=== PATIENT | male | born 1980 | race Caucasian/White ===

== ENCOUNTER 2017-07-22 08:00 | Outpatient (RCR) | payer BC ==
[2017-04-29 08:52] LABS: PLATELET COUNT, AUTOMATED 47 K/uL (150-450)
[2017-04-29 08:56] VITALS: BP 128/59
--- NOTE | 2017-04-29 09:10 | Oncology Note ---
Patient has called today with lab results. Platelet level is currently at 47, 000. Patient denies any episodes of bleeding or abnormal bruising. In review of literature on Sprycel, the indication is to hold treatment for platelet level less than 50,000 or ANC less than 1000. Patient was instructed to hold Sprycel 1 week. He has an appointment next week for CBC and we will reevaluate at that time. Patient will continue on allopurinol. He verbalized understanding. Patient also verbalized understanding if he were to have episodes of bleeding to seek medical care. JUDI BLANCO-BC, ONC Apr 29, 2017 09:10
[2017-05-06 08:28] VITALS: BP 133/77
[2017-05-06 08:45] LABS: PLATELET COUNT, AUTOMATED 79 K/uL (150-450)
--- NOTE | 2017-05-06 09:17 | Oncology Note ---
Patient is called with his lab results today. Platelet level is increased to 79, 000 and absolute neutrophil count is 1700. Patient denied any episodes of abnormal bleeding or bruising and overall is feeling very well. He will restart Sprycel tomorrow morning and repeat labs in 1 week. If platelet level goes below 50,000 we will hold treatment again. Patient follows with Dr. Morales in May. At that time we may need to do a dose reduction, it will just depend on the trend that he has over the next several weeks. Patient verbalizes understanding and agrees with plan of care JUDI BLANCO FRANCHISE MANAGER-BC, ONC May 06, 2017 09:17
[2017-05-13 08:20] VITALS: BP 134/78
[2017-05-13 08:32] LABS: PLATELET COUNT, AUTOMATED 106 K/uL (150-450)
[2017-05-20 08:05] VITALS: BP 125/73
[2017-05-20 08:21] LABS: PLATELET COUNT, AUTOMATED 76 K/uL (150-450)
[2017-05-27 08:11] VITALS: BP 137/74
[2017-05-27 08:26] LABS: PLATELET COUNT, AUTOMATED 68 K/uL (150-450)
[2017-06-03 08:32] LABS: PLATELET COUNT, AUTOMATED 69 K/uL (150-450)
[2017-06-03 10:24] VITALS: BP 127/64
[2017-06-06 08:07] VITALS: BP 126/77
--- NOTE | 2017-06-06 09:59 | [facility] ONCOLOGY NOTE ---
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 HISTORY OF PRESENT ILLNESS Dm returns. His original white count was 193,000 with a 25 cm spleen. His labs have normalized, and his spleen is no longer palpable. He developed some mild pancytopenia, but this is now improved back to normal. He started dasatinib on February 18, 2017. At the three-month period, he already has profound improvement in his BCR/ABL testing with a weak positive. Of note, his original BCR/ABL testing showed a major breakpoint of p210, but it now shows a barely detectable p190 breakpoint. No bone marrow blasts in the bone marrow biopsy to suggest blast phase or accelerated phase. Overall Dm feels well. His headaches, fatigue, low-grade fever have all improved. His only complaint today is some mild indigestion. He started a probiotic. He thinks this is helping. Answered all of his questions today. No new issues. PAST MEDICAL HISTORY CML. MEDICATIONS Sprycel. REVIEW OF SYSTEMS CONSTITUTIONAL: No fevers or chills. HEENT: No headache or vision changes. Cold sores resolved. Off acyclovir now. CARDIOVASCULAR: No chest pain, dyspnea on exertion or edema. RESPIRATORY: No shortness of breath, wheeze, cough. GASTROINTESTINAL: Positive indigestion with some occasional heartburn-like symptoms. Started a probiotic. Could consider a PPI for two months if this does not improve. GENITOURINARY: No dysuria or hematuria. MUSCULOSKELETAL: No aches or pains. EXTREMITIES: No clubbing, cyanosis or edema. HEMATOLOGICAL/LYMPHATIC: No concerning lumps or bumps. NEUROLOGICAL: No deficits. PSYCHIATRIC: Normal, no anxiety or depression. Remainder of the 14-point review of systems is otherwise negative. PHYSICAL EXAMINATION VITAL SIGNS: Blood pressure 126/77, pulse 65, respiratory rate 16, temperature 97.8 Fahrenheit, oxygen saturation 98% on room air. Weight 95.9 kg. Pain 0/10 , fatigue 0/10. GENERAL: In stable condition, resting comfortably in the chair. HEENT: Normocephalic, atraumatic. CARDIOVASCULAR: Regular rate and rhythm. LUNGS: Clear to auscultation bilaterally. No wheezes, crackles or rales. No dullness at the base. ABDOMEN: Soft. I no longer feel the spleen. Nontender, nondistended. PSYCHIATRIC: Normal mood and affect. Much improved. The remainder of physical exam unremarkable. IMPRESSION AND PLAN Mr. Rodriguez is a pleasant 36-year-old gentleman with the followin. Chronic phase chronic myelogenous leukemia, newly diagnosed with a p210 breakpoint. He is responding very well to Sprycel. He has already obtained complete hematologic response. He still has a detectable BCR/ABL test with a positive p190. Will confirm that they also checked for p210. Will see him every three months with labs every month for now. I answered all of their many questions today. Billing: Return visit level 4. Total time 30 minutes, counseling time 20. MTDD
[2017-07-04 08:24] VITALS: BP 134/73
[2017-07-04 08:39] LABS: PLATELET COUNT, AUTOMATED 39 K/uL (150-450)
[2017-07-08 08:45] VITALS: BP 135/83
[2017-07-08 09:16] LABS: PLATELET COUNT, AUTOMATED 48 K/uL (150-450)
[2017-07-12 08:15] VITALS: BP 142/55
[2017-07-12 08:58] LABS: PLATELET COUNT, AUTOMATED 42 K/uL (150-450)
[2017-07-15 08:45] LABS: PLATELET COUNT, AUTOMATED 44 K/uL (150-450)
[2017-07-15 08:46] VITALS: BP 145/93
[2017-07-18 09:23] LABS: PLATELET COUNT, AUTOMATED 52 K/uL (150-450)
[2017-07-18 10:46] VITALS: BP 130/78
[~2017-07-22] VITALS: Ht 188 cm; Wt 95.9 kg
[~2017-07-22 08:00] MED LIST: ACET-1966 PO; ACYC-50 PO; ALLO-119 PO; IBUP200C71 PO; LACT1CAP6 PO; ONDA4TAB9 PO; SULF-283 PO; [UNRECOGNIZED DRUG - CODE] PO
[2017-07-22 08:05] VITALS: BP 135/99
[2017-07-22 08:26] LABS: PLATELET COUNT, AUTOMATED 63 K/uL (150-450)
== END 2017-07-27 ==
LOC: SPU 08:00
PROVIDERS: ATTEND Internal Medicine Medical Oncology
DX: C92.10 Chronic myeloid leukemia, BCR/ABL-positive, not having achieved remission (principal); R16.1 Splenomegaly, not elsewhere classified
CPT/HCPCS: 36415; 81207; 82040; 82247; 82310; 82374; 82435; 82565; 82947; 84075; 84132; 84155; 84295; 84450; 84460; 84520; 85025; 99212

== ENCOUNTER 2017-09-12 07:58 | Outpatient (RCR) | payer BC ==
[2017-07-29 08:06] VITALS: BP 136/82
[2017-08-29 08:07] VITALS: BP 131/82
[2017-08-29 08:23] LABS: PLATELET COUNT, AUTOMATED 146 K/uL (150-450)
[~2017-09-12 07:58] MED LIST changes: +[UNRECOGNIZED DRUG - CODE] PO
[2017-09-12] MEDS ORDERED: LORA5TAB16 PO (08:07)
[2017-09-12] MEDS ORDERED: TRIA10.8 (08:07)
[2017-09-12 08:08] VITALS: BP 130/71
[2017-09-12 08:47] LABS: PLATELET COUNT, AUTOMATED 135 K/uL (150-450)
--- NOTE | 2017-09-13 16:50 | ONCOLOGY FOLLOW UP NOTE ---
EVENT DATE: September 12, 2017 CHIEF COMPLAINT/REASON FOR VISIT Mr. Rodriguez is a pleasant 36-year-old gentleman with chronic phase CML on SPRYCEL 80 mg daily, here for followup. HISTORY OF PRESENT ILLNESS Dm returns. His original white count was 193,000 with a 25 cm spleen. His labs have normalized and his spleen is no longer palpable. He developed pancytopenia including a platelet count less than 50 and so his dose was reduced to 80 mg. He started that on approximately September 05, 2017. His original start date for dasatinib was February 18, 2017. His original BCR/ABL testing showed a major breakpoint of p210, but then in April of 2017 it showed a barely detectable p190 break point. No bone marrow blasts were seen to suggest blast phase or accelerated phase. Overall he feels well. He does have some aches now that he has restarted therapy. These are mild and feel like a very low grade flu. No fevers. He is using a probiotic to help with indigestion. Overall he is doing well. PAST MEDICAL HISTORY CML. MEDICATIONS 1. SPRYCEL. 2. Probiotic. REVIEW OF SYSTEMS CONSTITUTIONAL: No fevers, chills, weight change. HEENT: No headache or vision changes. CARDIOVASCULAR: No chest pain, dyspnea on exertion or edema. RESPIRATORY: No shortness of breath, wheeze, cough. GASTROINTESTINAL: No nausea, vomiting. Positive indigestion. GENITOURINARY: No dysuria or hematuria. MUSCULOSKELETAL: Positive aches and low grade pain since restarting the SPRYCEL last week. HEMATOLOGIC/LYMPHATIC: No concerning lumps or bumps. EXTREMITIES: No clubbing, cyanosis or edema. NEUROLOGIC: No deficits. PSYCHIATRIC: Normal. No anxiety or depression. The remainder of the 14-point review of systems is otherwise negative. PHYSICAL EXAMINATION VITAL SIGNS: Blood pressure 130/71, pulse 80, respiratory rate 16, temperature 98.2 Fahrenheit, oxygen saturation 94% on room air. Weight 100.2 kg. Pain 0/10 , fatigue 0/10. GENERAL: In stable condition, resting comfortably in the chair. HEENT: Normocephalic, atraumatic. CARDIOVASCULAR: Regular rate and rhythm. LUNGS: Clear. ABDOMEN: Soft, nontender. EXTREMITIES: No clubbing, cyanosis or edema. Remainder of physical exam otherwise unremarkable. IMPRESSION/PLAN Mr. Rodriguez is a pleasant 36-year-old gentleman with the following: Chronic phase chronic myelogenous leukemia, newly diagnosed in January 2017 with a p210 breakpoint. He is responding well to SPRYCEL, but we need to make a dose reduction due to thrombocytopenia. He made this in August 2017. We will check his labs every one to two weeks to confirm that he does not have further issue with platelets. We will check his BCR/ABL every three months. We need to confirm that they are checking the correct tests and may need to look for p210 and p190. I answered all of his questions today. Billing: Return visit level 4. Total time 30 minutes, counseling time 20. High risk, high complexity. MTDD
== END 2017-09-23 11:20 | disposition home or self-care (01) ==
LOC: ONC 07:58
PROVIDERS: ATTEND Internal Medicine Medical Oncology
DX: C92.10 Chronic myeloid leukemia, BCR/ABL-positive, not having achieved remission (principal); D69.6 Thrombocytopenia, unspecified
CPT/HCPCS: 36415; 82040; 82247; 82310; 82374; 82435; 82565; 82947; 83615; 84075; 84100; 84132; 84155; 84295; 84450; 84460; 84520; 84550; 85025; 85027; 99212

== ENCOUNTER 2017-12-19 08:07 | Outpatient (RCR) | payer BC ==
[2017-09-26 08:20] LABS: PLATELET COUNT, AUTOMATED 84 K/uL (150-450)
[2017-10-10 08:07] VITALS: BP 134/74
[2017-10-10 09:05] LABS: PLATELET COUNT, AUTOMATED 24 K/uL (150-450)
[2017-10-17 08:13] VITALS: BP 134/85
[2017-10-17 08:43] LABS: PLATELET COUNT, AUTOMATED 26 K/uL (150-450)
[2017-10-25 08:10] VITALS: BP 134/85
[2017-10-25 08:41] LABS: PLATELET COUNT, AUTOMATED 25 K/uL (150-450)
[2017-10-31 08:21] VITALS: BP 130/78
[2017-10-31 09:01] LABS: PLATELET COUNT, AUTOMATED 34 K/uL (150-450)
[2017-11-07 08:10] VITALS: BP 118/67
[2017-11-07 08:56] LABS: PLATELET COUNT, AUTOMATED 45 K/uL (150-450)
[2017-11-14 08:16] VITALS: BP 124/82
[2017-11-14 08:22] LABS: PLATELET COUNT, AUTOMATED 86 K/uL (150-450)
[2017-11-21 08:16] LABS: PLATELET COUNT, AUTOMATED 123 K/uL (150-450)
[2017-11-28 08:02] VITALS: BP 121/87
[2017-11-28 08:16] LABS: PLATELET COUNT, AUTOMATED 118 K/uL (150-450)
[2017-12-05 08:14] VITALS: BP 147/77
[2017-12-05 08:36] LABS: PLATELET COUNT, AUTOMATED 83 K/uL (150-450)
[2017-12-06 08:06] VITALS: BP 121/72
--- NOTE | 2017-12-07 09:06 | [facility] ONCOLOGY NOTE ---
CHIEF COMPLAINT/REASON FOR VISIT Mr. Rodriguez is a very pleasant 36-year-old gentleman here for followup for chronic phase CML, on Sprycel 50 mg daily. HISTORY OF PRESENT ILLNESS Dm returns. His original white count was 193,000 with a 25 cm spleen. These have normalized and his spleen is now normal size. He developed pancytopenia and his platelet count has been less than 50 on multiple occasions so we reduced his dose to 50 mg. This is his second dose reduction. He has had multiple breaks due to the thrombocytopenia and, therefore, I am not surprised that his BCR-ABL is much improved but still remains above 1%. It is less than 10% and we have approximately three more months to get it down below 1 %. He is tolerating this well with significant fatigue but this may be related to increased stress in his life as well. Met with counseling today. He re- started the 50 mg dose in mid-October 2017 after a multiple week break due to thrombocytopenia. His original BCR-ABL testing showed a major break point of P210 but then in April 2017 it showed a very detectable P190 breakpoint. No bone marrow blasts were seen to suggest blast phase or accelerator phase. Overall, he feels well other than the fatigue. We discussed stressors at home, at work and with his cancer. I believe this is the predominant reason for his fatigue today. PAST MEDICAL HISTORY CML. MEDICATIONS 1. SPRYCEL. 2. Probiotic. REVIEW OF SYSTEMS Constitutional: No fever, chills or weight change. HEENT: No headaches or vision changes. CV: No chest pain, dyspnea on exertion, edema currently. Respiratory: No shortness of breath, wheeze or cough. GI: No nausea or vomiting. : No dysuria or hematuria. Musculoskeletal: Positive aches and pains. Psychiatric: Positive high stress and fatigue. Hematologic/lymphatic: No concerning lumps or bumps. Extremities: No clubbing, cyanosis or edema. Neurologic: No deficits. Remainder of 14-point review of systems is otherwise negative. PHYSICAL EXAMINATION VITAL SIGNS: Blood pressure 121/72, pulse 61, respiratory rate 16, temperature 97 Fahrenheit, oxygen saturation 94% on room air, weight 97.6 kg. Pain 0/10, fatigue 5/10. GENERAL: Stable condition, resting comfortably in the chair. HEENT: Normocephalic/atraumatic. ABDOMEN: Soft, nontender. No organomegaly or masses. Splenomegaly has resolved. EXTREMITIES: No clubbing, cyanosis or edema. The remainder of physical exam is otherwise unremarkable. IMPRESSION/PLAN Mr. Rodriguez is a very pleasant 36-year-old gentleman with the following: Chronic phase chronic myeloid leukemia (CML) diagnosed in January 2017 with a P210 breakpoint. We have discovered a P90 breakpoint as well. He is responding well to Sprycel but has not met his 12-month goal at the 9-month flaco. We have had multiple breaks due to thrombocytopenia and I believe this is the reason for the slow response. As noted, though, he is still within target for his checkpoints. I answered all of his questions today. I spent a considerable amount of time counseling him regarding the increase stress in his life. He met with counseling and transition social worker again today as well and they will set up a meeting for tomorrow to talk in more detail. Billing Return visit level 4. Total time 30 minutes, counseling time 20. MTDD
[2017-12-12 08:23] VITALS: BP 120/67
[2017-12-12 08:28] LABS: PLATELET COUNT, AUTOMATED 74 K/uL (150-450)
[~2017-12-19 08:07] MED LIST changes: +IBUP-136 PO; -IBUP200C71 PO; +LORA5TAB16 PO; +TRIA10.8
[2017-12-19 08:30] VITALS: BP 129/67
[2017-12-19 08:56] LABS: PLATELET COUNT, AUTOMATED 86 K/uL (150-450)
== END 2017-12-25 ==
LOC: SPU 08:07
PROVIDERS: ATTEND Internal Medicine Medical Oncology
DX: C92.10 Chronic myeloid leukemia, BCR/ABL-positive, not having achieved remission (principal); D69.6 Thrombocytopenia, unspecified
CPT/HCPCS: 36415; 85025; 99212

== ENCOUNTER 2018-03-20 08:00 | Outpatient (RCR) | payer BC ==
[2017-12-26 08:28] LABS: PLATELET COUNT, AUTOMATED 65 K/uL (150-450)
[2017-12-26 08:39] VITALS: BP 129/68
[2018-01-02 08:18] VITALS: BP 125/77
[2018-01-02 08:22] LABS: PLATELET COUNT, AUTOMATED 61 K/uL (150-450)
[2018-01-10 08:42] LABS: PLATELET COUNT, AUTOMATED 36 K/uL (150-450)
[2018-01-16 08:19] VITALS: BP 135/74
[2018-01-16 08:42] LABS: PLATELET COUNT, AUTOMATED 50 K/uL (150-450)
[2018-01-23 14:58] VITALS: BP 128/77
[2018-01-23 15:47] LABS: PLATELET COUNT, AUTOMATED 52 K/uL (150-450)
--- NOTE | 2018-01-24 22:30 | [facility] ONCOLOGY NOTE ---
EVENT DATE: January 23, 2018 CHIEF COMPLAINT/REASON FOR VISIT Mr. Rodriguez is a pleasant, 37-year-old gentleman with chronic phase CML, here for followup. HISTORY OF PRESENT ILLNESS Dm returns. His original white count was 193,000 with a 25 cm spleen. He received Sprycel. Even at reduced doses, he developed thrombocytopenia. His white blood cell count and spleen both normalized, however. His BCR-ABL PCR is much improved, but remained above 1% due to the multiple breaks in therapy for thrombocytopenia. We are again in another break as soon as platelet count dropped below 50,000 with a Sprycel level of 50 mg daily. His original BCR-ABL testing showed a major breakpoint of p210, but then in April 2017, it showed a small detectable p190 breakpoint. No bone marrow blasts were seen to suggest blast phase or accelerated phase. He feels quite well. He is doing much better in terms of stress and anxiety. He has met with our counselor, Anju. Given the low platelets, we are going to switch to Gleevec, and his platelet count is recovering with the most recent level of 50,000. CBC pending today. PAST MEDICAL HISTORY CML. MEDICATIONS 1. Sprycel. 2. Probiotic. REVIEW OF SYSTEMS CONSTITUTIONAL: No fever, chills or weight change. HEENT: No headaches or vision changes. CARDIOVASCULAR: No chest pain, dyspnea on exertion, edema currently. RESPIRATORY: No shortness of breath, wheeze, or cough. GASTROINTESTINAL: No nausea or vomiting. GENITOURINARY: No dysuria or hematuria. MUSCULOSKELETAL: No arthralgias or myalgias. PSYCHIATRIC: Positive high stress and fatigue. HEMATOLOGIC/LYMPHATICS: No concerning lumps or bumps. EXTREMITIES: No clubbing, cyanosis, or edema. NEUROLOGIC: No deficits. Remainder of 14-point review of systems is otherwise negative. PHYSICAL EXAMINATION VITAL SIGNS: Blood pressure 128/77, pulse 76, respiratory rate 16, temperature 97.9 Fahrenheit, oxygen saturation 94% on room air. Weight 100.4 kg. Pain zero/10, fatigue zero/10. His weight is up about 8 pounds compared to earlier in the year. GENERAL: Stable condition, resting comfortably in the chair. HEENT: Normocephalic, atraumatic. CARDIOVASCULAR: Regular rate and rhythm. LUNGS: Clear to auscultation bilaterally. No wheezes, crackles, or rales. ABDOMEN: Soft, nontender. EXTREMITIES: No clubbing, cyanosis, or edema. Remainder of his physical exam is otherwise unremarkable. IMPRESSION AND PLAN Mr. Rodriguez is a very pleasant, 37-year-old gentleman with the followin. Chronic phase chronic myeloid leukemia diagnosed with a p210 breakpoint in January 2017. We have also subsequently discovered a p190 breakpoint. He is responding well to Sprycel, but has not met the 12-month goal due to multiple breaks from thrombocytopenia. Plan to change to Gleevec at this time. We are on another break now due to thrombocytopenia. 2. Thrombocytopenia due to Sprycel. 3. High anxiety and stress, improving. He is working with counseling and making lifestyle adjustments. I answered all his questions today. BILLING Return visit level 4. Total time 30 minutes, counseling time 20. MTDD
[2018-01-31 08:13] VITALS: BP 155/85
[2018-01-31 08:24] LABS: PLATELET COUNT, AUTOMATED 71 K/uL (150-450)
[2018-02-06 08:16] VITALS: BP 139/92
[2018-02-06 08:26] LABS: PLATELET COUNT, AUTOMATED 88 K/uL (150-450)
[2018-03-06 08:18] VITALS: BP 131/74
[2018-03-06 08:18] LABS: PLATELET COUNT, AUTOMATED 174 K/uL (150-450)
[2018-03-13 08:12] VITALS: BP 145/82
[2018-03-13 08:16] LABS: PLATELET COUNT, AUTOMATED 147 K/uL (150-450)
[~2018-03-20 08:00] MED LIST changes: +IMAT400PT PO; +LORA-1455 PO; +ONDA4TAB PO; +PROC10TA4 PO
[2018-03-20 08:12] VITALS: BP 136/75
[2018-03-20 08:24] LABS: PLATELET COUNT, AUTOMATED 126 K/uL (150-450)
--- NOTE | 2018-03-21 13:39 | [facility] ONCOLOGY NOTE ---
DATE OF VISIT: March 20, 2018 CHIEF COMPLAINT/REASON FOR VISIT Mr. Rodriguez is a pleasant 37-year-old gentleman with CML, chronic phase, with both a p210 and detectable p190 breakpoint. HISTORY OF PRESENT ILLNESS Dm returns. His original white count was 193,000 with a 25 cm spleen. He received Sprycel, but even at reduced doses, developed thrombocytopenia. Thankfully, he had complete hematologic response with this. The BCR-ABL PCR improved, but remained above 1% due to multiple breaks in therapy for thrombocytopenia. We dropped the dose all the way down to 50 mg, but he continued to have significant pancytopenia. He feels well. He does have some GI symptoms including dyspepsia and excess gas from the new Gleevec, which he started approximately one month ago. His platelet count has dropped some, but is only in the 120s, which is much improved compared to Sprycel. I am hopeful that the first generation TKI will be responsive for him, but not as myelosuppressive. PAST MEDICAL HISTORY CML. REVIEW OF SYSTEMS CONSTITUTIONAL: No fever, chills or weight change. HEENT: No headaches or vision changes. CARDIOVASCULAR: No chest pain, dyspnea on exertion, edema currently. RESPIRATORY: No shortness of breath, wheeze, or cough. GASTROINTESTINAL: No nausea or vomiting. GENITOURINARY: No dysuria or hematuria. MUSCULOSKELETAL: No arthralgias or myalgias. PSYCHIATRIC: Positive high stress and fatigue. HEMATOLOGIC/LYMPHATICS: No concerning lumps or bumps. EXTREMITIES: No clubbing, cyanosis, or edema. NEUROLOGIC: No deficits. Remainder of 14-point review of systems is otherwise negative. PHYSICAL EXAMINATION VITAL SIGNS: Blood pressure 136/75, pulse 84, respiratory rate 16, temperature 98.8 Fahrenheit, oxygen saturation 96% on room air. Weight 101.6 kg. Pain 0/10, fatigue 0/10. GENERAL: Stable condition, resting comfortably in the chair. HEENT: Normocephalic, atraumatic. CARDIOVASCULAR: Regular rate and rhythm. LUNGS: Clear. ABDOMEN: Soft, nontender. No organomegaly or masses. The spleen is now normal sized. EXTREMITIES: No clubbing, cyanosis, or edema. SKIN: No rashes. Remainder of the physical exam otherwise unremarkable. IMPRESSION/REPORT/PLAN Mr. Rodriguez is a very pleasant 37-year-old gentleman with the followin. Chronic phase, chronic myeloid leukemia diagnosed with a p210 breakpoint in January 2017. We have also subsequently discovered a p190 breakpoint. He responded well to Sprycel in terms of the complete hematologic response, but was unable to meet the 12-month goal due to multiple breaks from significant thrombocytopenia. Now changing to Gleevec, and he has been on it for approximately one month with a standard dose. 2. Thrombocytopenia, on Sprycel. He has mild thrombocytopenia on Gleevec, and I am hopeful that we will be able to continue. We will check labs every two weeks. 3. High anxiety and stress, improved overall. 4. Gastrointestinal toxicity from Gleevec. We discussed ways to remedy this, including the simethicone, which he has not yet tried. I answered all of his questions today. BILLING Return visit level 4. Total time 30 minutes, counseling time 20. MTDD
== END 2018-03-29 ==
LOC: SPU 08:00
PROVIDERS: ATTEND Internal Medicine Medical Oncology
DX: C92.10 Chronic myeloid leukemia, BCR/ABL-positive, not having achieved remission (principal); D69.6 Thrombocytopenia, unspecified; F41.9 Anxiety disorder, unspecified
CPT/HCPCS: 36415; 82040; 82247; 82310; 82374; 82435; 82565; 82947; 84075; 84132; 84155; 84295; 84450; 84460; 84520; 85025; 99212

== ENCOUNTER 2018-06-05 08:21 | Outpatient (RCR) | payer BC ==
[2018-04-03 08:14] VITALS: BP 132/78
[2018-04-03 08:19] LABS: PLATELET COUNT, AUTOMATED 123 K/uL (150-450)
[2018-04-17 08:06] VITALS: BP 131/83
[2018-04-17 08:29] LABS: PLATELET COUNT, AUTOMATED 103 K/uL (150-450)
[2018-05-01 08:19] VITALS: BP 144/87
[2018-05-01 09:09] LABS: PLATELET COUNT, AUTOMATED 88 K/uL (150-450)
--- NOTE | 2018-05-02 14:19 | NUR ---
SERGIO followed up on a request from director who indicated the pt was unsure if his Gleevec was ever approved by his insurance, and why his second shipment had not come in the mail. SERGIO followed up with [facility] who indicated yes, the pt's insurance approved the drug and that the pt was responsible for ordering refills. SERGIO informed the pt of this information. He will be contacting [facility] to order his refill.
[2018-05-03 08:21] VITALS: BP 129/80
--- NOTE | 2018-05-03 21:39 | ONCOLOGY FOLLOW UP NOTE ---
EVENT DATE: May 03, 2018 CHIEF COMPLAINT/REASON FOR VISIT Mr. Rodriguez is a pleasant, 37-year-old gentleman with chronic phase CML with both a p210 and detectable p190 breakpoint. He is on Gleevec second line therapy due to progressive thrombocytopenia with other agents. HISTORY OF PRESENT ILLNESS Dm returns. His original white count was 193,000 with a 25 cm spleen. He received Sprycel, but even at reduced doses, developed thrombocytopenia. Thankfully, he had a complete hematologic response with this. The BRC-ABL PCR improved, but remained above 1% due to multiple breaks in therapy. We dropped the dose all the way down to 50 mg, but he continued to have significant pancytopenia. He is now on Gleevec, his second line therapy, and he continues to have some GI symptoms including dyspepsia, nausea, and excess gas. He uses prochlorperazine with success. His platelet count has dropped some, but as long as it remains above 50,000, we will continue. I am hopeful that the first generation TKI will be responsive for him, but not as myelosuppressive, and we can stay on it. He is taking it routinely without break. PAST MEDICAL HISTORY CML. REVIEW OF SYSTEMS CONSTITUTIONAL: No fever, chills, or weight change. HEENT: No headaches or vision changes. CARDIOVASCULAR: No chest pain, dyspnea on exertion, edema currently. RESPIRATORY: No shortness of breath, wheeze, or cough. GASTROINTESTINAL: No nausea or vomiting. GENITOURINARY: No dysuria or hematuria. MUSCULOSKELETAL: No arthralgias or myalgias. PSYCHIATRIC: Positive high stress and fatigue. HEMATOLOGIC/LYMPHATICS: No concerning lumps or bumps. EXTREMITIES: No clubbing, cyanosis, or edema. NEUROLOGIC: No deficits. Remainder of 14-point review of systems is otherwise negative. PHYSICAL EXAMINATION VITAL SIGNS: Blood pressure 129/80, pulse 67, respiratory rate 16, temperature 98.3 Fahrenheit, oxygen saturation 94% on room air. Weight 103.5 kg. Pain 0/10. Fatigue 0/10. GENERAL: Stable condition, resting comfortably in the chair. HEENT: Normocephalic, atraumatic. CARDIOVASCULAR: Regular rate and rhythm. LUNGS: Clear. ABDOMEN: Soft, nontender. No organomegaly or masses. The spleen is now normal sized. EXTREMITIES: No clubbing, cyanosis, or edema. SKIN: No rashes. Remainder of the physical exam otherwise unremarkable. IMPRESSION/REPORT/PLAN Mr. Rodriguez is a very pleasant, 37-year-old gentleman with the followin. Chronic phase chronic myeloid leukemia diagnosed with a p210 breakpoint in January 2017. We have subsequently discovered a p190 breakpoint. He responded well to Sprycel in terms of the complete hematologic response, but was unable to meet the 12-month goal due to multiple breaks from significant thrombocytopenia. Now changing to Gleevec which he started in January 2018 and is tolerating this well. He is due for his first BCR-ABL test in approximately two weeks, and then I will see him back in the new year. 2. Thrombocytopenia. He has mild thrombocytopenia, but as long as it remains above 50, we will make no changes. 3. High anxiety and stress. Overall improved compared to earlier in the year. 4. Gastrointestinal toxicity from Gleevec. Currently controlled with simethicone and prochlorperazine. No other issues today. I answered all of his many questions. BILLING Return visit level 3. Total time 30 minutes, counseling time 18. MTDD
[2018-05-15 08:27] VITALS: BP 121/79
[2018-05-15 08:33] LABS: PLATELET COUNT, AUTOMATED 91 K/uL (150-450)
[2018-05-31 08:09] VITALS: BP 129/87
[2018-05-31 08:22] LABS: PLATELET COUNT, AUTOMATED 114 K/uL (150-450)
[2018-06-05 08:28] VITALS: BP 135/85
--- NOTE | 2018-06-05 11:57 | SCHUSTER ONCOLOGY NOTE ---
EVENT DATE: June 05, 2018 CHIEF COMPLAINT/REASON FOR VISIT Mr. 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 He is on Gleevec second line therapy due to progressive thrombocytopenia with second generation Sprycel. His new start date is January 2018. HISTORY OF PRESENT ILLNESS Dm returns. His original white count was 193,000 with a 25 cm spleen. He received Sprycel but even at reduced doses developed severe thrombocytopenia. Thankfully, he had a complete hematologic response with this and the BRC-ABL PCR improved. However, it remained above 1% due to multiple breaks in therapy. We dropped the dose all the way down to 50 mg but he continued to have significant pancytopenia. He had significant breaks in therapy. His BCR-ABL quantitative PCR has been between 8 and 33%. He is now on Gleevec. He has some mild GI symptoms and uses prochlorperazine with success. I am hopeful that his symptoms will improve with time. His platelet count dropped initially but has started to improve. I am hopeful that this first generation TKI will be responsive for him but not as myelosuppressive. He is now taking it routinely without break and feels well. PAST MEDICAL HISTORY CML. REVIEW OF SYSTEMS CONSTITUTIONAL: No fever, chills, or weight change. HEENT: No headaches or vision changes. CARDIOVASCULAR: No chest pain, dyspnea on exertion, edema currently. RESPIRATORY: No shortness of breath, wheeze, or cough. GASTROINTESTINAL: No nausea or vomiting. GENITOURINARY: No dysuria or hematuria. MUSCULOSKELETAL: No arthralgias or myalgias. PSYCHIATRIC: Positive high stress and fatigue, improved. HEMATOLOGIC/LYMPHATICS: No concerning lumps or bumps. EXTREMITIES: No clubbing, cyanosis, or edema. NEUROLOGIC: No deficits. Remainder of 14-point review of systems is otherwise negative. PHYSICAL EXAMINATION VITAL SIGNS: Blood pressure 135/85, pulse 65, respiratory rate 16, temperature 98.4 Fahrenheit, oxygen saturation 94% on room air. Weight 105.1 kg. Pain 0/10. Fatigue 0/10. GENERAL: Stable condition, resting comfortably in the chair. HEENT: Normocephalic, atraumatic. Dullness to the tympanic membranes and some mild dull erythema on the posterior pharynx. I suspect he has a viral cold. CARDIOVASCULAR: Deferred. LUNGS: Clear. ABDOMEN: Soft, nontender. No organomegaly or masses. The spleen is now normal. EXTREMITIES: No clubbing, cyanosis, or edema. LYMPHATIC: No appreciable cervical, supraclavicular or axillary adenopathy. Remainder of the physical exam otherwise unremarkable. IMPRESSION/REPORT/PLAN Mr. Rodriguez is a very pleasant, 37-year-old gentleman with the followin. Chronic phase chronic myeloid leukemia diagnosed with a p210 breakpoint in January 2017. We subsequently discovered a p190 breakpoint. He responded well to Sprycel in terms of complete hematologic response but was unable to meet the 12-month goal due to multiple breaks due to significant thrombocytopenia. We switched to Gleevec and he started this in January 2018 and he is tolerating it well. Plan to repeat the BCR-ABL and PCR in approximately one month to make sure it is improving. His new baseline is 33%, which was obtained shortly after starting second-line therapy after a long break. His CBC never worsened. 2. Thrombocytopenia, improving. 3. High stress and anxiety, overall improved. 4. Gastrointestinal toxicity from Gleevec, currently controlled with simethicone and prochlorperazine. 5. Upper respiratory infection that I suspect is viral. If he worsens, then I do feel it is appropriate to prescribe him a Z-Shawn. I answered of his questions today. BILLING Return visit level 4. Total time 30 minutes, counseling time 20. MTDD
== END 2018-07-02 ==
LOC: ONC 08:21
PROVIDERS: ATTEND Internal Medicine
DX: C92.10 Chronic myeloid leukemia, BCR/ABL-positive, not having achieved remission (principal); D69.6 Thrombocytopenia, unspecified; F41.9 Anxiety disorder, unspecified; J06.9 Acute upper respiratory infection, unspecified; Z73.3 Stress, not elsewhere classified
CPT/HCPCS: 36415; 82040; 82247; 82310; 82374; 82435; 82565; 82947; 84075; 84132; 84155; 84295; 84450; 84460; 84520; 85025; 99212

== ENCOUNTER 2018-09-11 08:58 | Outpatient (RCR) | payer BC ==
[2018-07-03 08:28] VITALS: BP 138/80
[2018-07-03 08:47] LABS: PLATELET COUNT, AUTOMATED 126 K/uL (150-450)
--- NOTE | 2018-07-06 08:40 | NUR ---
SERGIO rec'd information from the patient that his insurance is not paying on claims from [facility] in the new year. He believes he has started to resolve this issue himself and has been in touch with [facility] about the issue and they are working on it. However, he also learned that now he has a $500/month co-pay on his gleevec, which is unaffordable. He stated he has been in touch with [facility] about this issue and they are applying him to a co-pay program and will get back to him today with details on the program. SERGIO will also research additional options for co-pay assistance.
--- NOTE | 2018-07-06 09:09 | NUR ---
SERGIO located co-pay assistance for the patient's gleevec through the [employer] co-pay assistance program. The pt did qualify and was provided a co-pay card worth $30,000 worth of assistance for the calendar year. Pt should not run out of assistance this year since his co-pay is $500/month ($6,000/year). Co-pay Card info: ID:[id number] BIN: [id number] PCN: EILEEN GRP: [id number] SERGIO called and gave this information to pt's pharmacy to apply to his account.
--- NOTE | 2018-07-14 10:36 | NUR ---
SERGIO rec'd confirmation that the patient was approved for the brand name Gleevec through [facility] - Auth# [id number]. SERGIO notified pt's pharmacy and reiterated that the already has a [employer] Co-pay program in place which will limit his out of pocket expense to $10/30 days.
[2018-07-31 08:01] VITALS: BP 135/70
[2018-07-31 08:17] LABS: PLATELET COUNT, AUTOMATED 114 K/uL (150-450)
[2018-08-28 08:33] VITALS: BP 134/64
[2018-08-28 08:39] LABS: PLATELET COUNT, AUTOMATED 96 K/uL (150-450)
[2018-09-11 09:00] VITALS: BP 133/82
--- NOTE | 2018-09-12 07:59 | SCHUSTER ONCOLOGY NOTE ---
EVENT DATE: September 11, 2018 CHIEF COMPLAINT/REASON FOR VISIT Mr. Rodriguez is a very pleasant 37-year old gentleman with CML, both with a p210 and detectable p190 breakpoint. He is currently on Gleevec second-line therapy due to progressive thrombocytopenia with reduced doses of second generation Sprycel. He started in January 2018 but then had a four to six week break in his therapy. We essentially restarted in early to mid June 2018. HISTORY OF PRESENT ILLNESS Dm returns. His original white count was 193,000 with a 25 cm spleen. He received Sprycel but even at reduced doses developed severe thrombocytopenia below 30. Thankfully, he had a complete hematologic remission as well as a marked improved in his BCR-ABL quantitative PCR. It did remain above 1%, though, due to multiple breaks in therapy with the thrombocytopenia. He is now on Gleevec. It has been approximately two months since he was back on Gleevec due to insurance issues. He has mild GI symptoms and mild muscle spasms that are all tolerable and do not require intervention. I am disappointed as his current PCR is 34%. We are going to send for resistance testing today but it may simply be that he needs additional time consistently on therapy. He is taking it every day and does not feel he has missed a dose in two months and feels quite well. His CBC is excellent with mild thrombocytopenia with platelets above 90. We will continue to follow this closely. PAST MEDICAL HISTORY CML. REVIEW OF SYSTEMS CONSTITUTIONAL: No fever, chills, or weight change. HEENT: No headaches or vision changes. CARDIOVASCULAR: No chest pain, dyspnea on exertion, edema currently. RESPIRATORY: No shortness of breath, wheeze, or cough. GASTROINTESTINAL: No nausea or vomiting. GENITOURINARY: No dysuria or hematuria. MUSCULOSKELETAL: No arthralgias or myalgias. PSYCHIATRIC: Positive high stress and fatigue, improved. HEMATOLOGIC/LYMPHATICS: No concerning lumps or bumps. EXTREMITIES: No clubbing, cyanosis, or edema. NEUROLOGIC: No deficits. Remainder of 14-point review of systems is otherwise negative. PHYSICAL EXAMINATION VITAL SIGNS: Blood pressure 133/82, pulse 72, respiratory rate 16, temperature 97.6 Fahrenheit, oxygen saturation 96% on room air. Weight 104.4 kg. Pain 0/10. Fatigue 0/10. GENERAL: Stable condition, resting comfortably in the chair. HEENT: Normocephalic, atraumatic. CARDIOVASCULAR: Regular rate and rhythm. LUNGS: Clear. ABDOMEN: Soft, nontender, nondistended. EXTREMITIES: No clubbing, cyanosis or edema. Remainder of the physical exam otherwise unremarkable. IMPRESSION/REPORT/PLAN Mr. Rodriguez is a very pleasant, 37-year-old gentleman with the followin. Chronic phase chronic myeloid with both a p210 and p190 breakpoint. He responded well to Sprycel in terms of complete hematologic response but did not meet the 12 month goal due to multiple breaks due to significant thrombocytopenia. We switched to Gleevec in January 2018 but he had again a significant break in therapy from May to early June 2018 due to insurance issues. We are now on therapy and have it paid for. His new baseline was 33% on the BCR-ABL and PCR. His CBC continues to be excellent with mild thrombocytopenia. After two months, we did not see any improvement but I am worried we may have tested too soon. We are going to send for resistance testing given the lack of response and multiple breaks in therapy. If this is normal, we will continue with Gleevec and test him again in approximately 1-1/2 months when he is due for his first formal evaluation. 2. Thrombocytopenia, improving. 3. High stress and anxiety, very much improved overall. 4. Mild gastrointestinal toxicity and muscle spasms related to Gleevec. Discussed simple remedies to help with this. I answered of his many questions today. Extensive review of the literature. We have had numerous breaks in therapy and need to do whatever we can to avoid future breaks. BILLING Return visit level 5. Total time 45 minutes, counseling time 35. MTDD
== END 2018-10-01 ==
LOC: ONC 08:58
PROVIDERS: ATTEND Internal Medicine
DX: C92.10 Chronic myeloid leukemia, BCR/ABL-positive, not having achieved remission (principal); D69.6 Thrombocytopenia, unspecified; F41.9 Anxiety disorder, unspecified; R53.83 Other fatigue
CPT/HCPCS: 36415; 81403; 82040; 82247; 82310; 82374; 82435; 82565; 82947; 84075; 84132; 84155; 84295; 84450; 84460; 84520; 85025; 99212

== ENCOUNTER → 2019-01-10 | Outpatient (CLI) | payer BC ==
[~2019-01-10] MED LIST changes: +BOSU400T PO; +TASIGNA PO
[2019-01-10 08:39] LABS: PLATELET COUNT, AUTOMATED 121 K/uL (150-450)
== END ==
LOC: LAB 08:11
PROVIDERS: ATTEND Surgery
DX: D72.829 Elevated white blood cell count, unspecified (principal)
CPT/HCPCS: 36415; 85025

== ENCOUNTER 2019-01-11 15:00 | Outpatient (RCR) | payer BC ==
[2018-10-24 08:52] LABS: PLATELET COUNT, AUTOMATED 107 K/uL (150-450)
[2018-11-06 13:10] VITALS: BP 120/79
--- NOTE | 2018-11-07 04:37 | ONCOLOGY FOLLOW UP NOTE ---
EVENT DATE: November 06, 2018 CHIEF COMPLAINT/REASON FOR VISIT Mr. Rodriguez is a very pleasant 37-year-old patient with chronic-phase CML, both with a p210 and p190 breakpoint. He is currently on Gleevec second-line therapy due to progressive thrombocytopenia with reduced doses of second-generation Sprycel. He restarted Gleevec therapy in mid-June 2018, and we are now assessing a full three months of therapy. HISTORY OF PRESENT ILLNESS Dm returns. His original white count was 193,000 with a 25 cm spleen. He received Sprycel, but even at reduced doses, with multiple dose reductions, he developed severe thrombocytopenia below 30. Fortunately, he had a complete hematologic response as well as a marked improvement in his BCR-ABL quantitative PCR. It remained between 1% to 10% though, due to, we believe, multiple breaks in therapy with the thrombocytopenia. We then switched to Gleevec, and we had issues with insurance which created a delay. He has now been consistently on it with no missed doses since June 2018. We sent for resistance testing, which was negative. His BCR-ABL PCR increased from 34% to 50% despite no changes in his CBC. His platelet count is above 100. I am concerned that the Gleevec is not strong enough for him. We had an extensive discussion today about next treatment options. He has no new symptoms. He feels quite well. He definitely has side effects from the Gleevec, including GI upset, muscle cramps. He has not done any of the remedies to try to help with these things, and he states that he will do so, and overall they have been mild. I do worry about increasing the dose of Gleevec, though, as these symptoms would likely get worse. PAST MEDICAL HISTORY CML. REVIEW OF SYSTEMS CONSTITUTIONAL: No fever, chills, or weight change. HEENT: No headaches or vision changes. CARDIOVASCULAR: No chest pain, dyspnea on exertion, edema currently. RESPIRATORY: No shortness of breath, wheeze, or cough. GASTROINTESTINAL: No nausea or vomiting. GENITOURINARY: No dysuria or hematuria. MUSCULOSKELETAL: No arthralgias or myalgias. PSYCHIATRIC: Positive high stress and fatigue, improved. HEMATOLOGIC/LYMPHATICS: No concerning lumps or bumps. EXTREMITIES: No clubbing, cyanosis, or edema. NEUROLOGIC: No deficits. Remainder of 14-point review of systems is otherwise negative. PHYSICAL EXAMINATION VITAL SIGNS: Blood pressure 120/79, pulse 63, respiratory rate 16, temperature 97.6 Fahrenheit, oxygen saturation 96% on room air. Weight 102.9 kg. Pain 0/10, fatigue 0/10. GENERAL: Stable condition, resting comfortably in the chair. HEENT: Normocephalic, atraumatic. EXTREMITIES: Without clubbing, cyanosis or edema. PSYCHIATRIC: Normal mood and affect. Full physical exam deferred today to amount of time spent in counseling and coordination of care. IMPRESSION/REPORT/PLAN Mr. Rodriguez is a very pleasant 37-year-old gentleman with the following: * Chronic-phase chronic myeloid leukemia with both a p210 and p190 breakpoint. He responded well to Sprycel in terms of complete hematologic response, but did not meet the 12-month goal due to multiple breaks from significant thrombocytopenia. We switched to Gleevec in January 2018, but he had more breaks in therapy due to insurance issues. His baseline BCR-ABL PCR was 33% when he restarted in June 2018. Unfortunately, after three months, this has increased slightly. Early in the year, we did TKI mutation resistance testing, which was normal. I do believe we need to consider other therapies such as omacetaxine, a different TKI, or even consideration of stem cell transplant. In my opinion, stem cell transplant would not be the next line of therapy. In light of these considerations, though, I think it would be landeros to get a second opinion with one of our transplant colleagues as well as discuss whether or not we should abandon the TKI class for omacetaxine or simply try a different agent. We had extensive discussion about this today, and answered all of his questions. We will see him back after the consultation with Dr. Busch later this summer. BILLING Return visit level 5. Total time 45 minutes, counseling time 30. MTDD
--- NOTE | 2018-12-27 13:52 | NUR ---
Pt came in for counseling yesterday. PT reports feeling very well, but still anxious about his plan and what the future holds for him. He spent much time speaking about his thoughts toward doing a transplant. He states he is feeling ready, but wants to prepare his kids and family as much as possible before that day comes. The pt was very insightful and positive, yet still quite worried. At this time the pt feels confident about moving foward with his next treatment, Nilotinib, and knows that further down the line, he will likely undergo a transplant.
[2019-01-01 14:42] VITALS: BP 129/85
--- NOTE | 2019-01-04 11:03 | NUR ---
SERGIO located [employer] co-pay card for Tasigna. Emailed copy to RN and patient.
--- NOTE | 2019-01-08 15:05 | NUR ---
SERGIO spoke with provider who wanted to change the order now to Bosulif. Provider already requested the free 1 month supply from the health worker during the drug rep's visit today and it is on the way. SERGIO completed the co-pay card registration and sent this to the RN to forward on to the specialty pharmacy.
--- NOTE | 2019-01-09 06:14 | ONCOLOGY FOLLOW UP NOTE ---
EVENT DATE: January 01, 2019 HISTORY OF PRESENT ILLNESS Mr. Rodriguez is a pleasant 37-year-old gentleman with chronic-phase CML with two transcripts (p210 and p190), here for followup. Dm returns. His original white count was 193,000 with a 25 cm spleen. He received Sprycel, but even with multiple dose reductions, he developed severe thrombocytopenia below a level of 30. Fortunately, he had a complete hematologic response as well as a marked improvement in his BCR/ABL quantitative PCR. However, it remained between 1% to 10% due to multiple breaks in therapy. We then switched to Gleevec, although we had an insurance delay with this. He was it continuously, though, from June 2018 until now. We sent for resistance testing, which was negative. Unfortunately, his BCR/ABL PCR increased up to 50% despite no changes in his CBC. His platelet count was normal. I am concerned that Gleevec is not strong enough, and we were considering omacetaxine versus a different TKI versus discussion of stem-cell transplant. He met with Dr. Busch on December 19, 2018. I met with Dr. Busch and discussed the case with him that day as well. I did not see Dm at that time, and I am returning in followup today so we can discuss those recommendations and then move forward. He has no new symptoms. He continues to feel well. He definitely had side effects from the Gleevec, including GI upset and muscle cramps. We did not do remedies for this despite our discussion, as he felt that the symptoms were mild, though. After discussion with Dr. Busch and then with Dm today, we plan to move forward with nilotinib. PAST MEDICAL HISTORY CML. REVIEW OF SYSTEMS CONSTITUTIONAL: No fever, chills, or weight change. HEENT: No headaches or vision changes. CARDIOVASCULAR: No chest pain, dyspnea on exertion, edema currently. RESPIRATORY: No shortness of breath, wheeze, or cough. GASTROINTESTINAL: No nausea or vomiting. GENITOURINARY: No dysuria or hematuria. MUSCULOSKELETAL: No arthralgias or myalgias. PSYCHIATRIC: Positive high stress and fatigue, improved. HEMATOLOGIC/LYMPHATICS: No concerning lumps or bumps. EXTREMITIES: No clubbing, cyanosis, or edema. NEUROLOGIC: No deficits. Remainder of 14-point review of systems is otherwise negative. PHYSICAL EXAMINATION VITAL SIGNS: Blood pressure 129/85, pulse 81, respiratory rate 16, temperature 98.5 Fahrenheit, oxygen saturation 93% on room air. Weight 104.1 kg. Pain 0/10, fatigue 0/10. GENERAL: Stable condition, resting comfortably in the chair. HEENT: Normocephalic, atraumatic. SKIN: No concerning rashes or lesions. ABDOMEN: No splenomegaly. EXTREMITIES: Without clubbing, cyanosis or edema. Remainder of physical exam deferred today to amount of time spent in counseling with patient and coordination of care with Dr. Busch and colleagues. IMPRESSION/REPORT/PLAN Mr. Rodriguez is a pleasant 38-year-old gentleman with the following: Chronic- phase chronic myeloid leukemia with both a p210 and p190 breakpoint. He responded well to Sprycel in terms of complete hematologic response, but did not meet the 12-month goal due to multiple breaks due to significant thrombocytopenia, despite dose reductions. We then switched to Gleevec in January 2018, but he had more breaks in therapy due to insurance issues. His baseline BCR-ABL PCR was 33% when he restarted in June 2018. Unfortunately, after three months, this had increased slightly. We did TKI resistance testing, which was normal. We discussed other options including omacetaxine, a different TKI, and stem-cell transplant. He met with and I discussed with Dr. Busch all of these options. After discussion, we would like to pursue nilotinib therapy prior to considering stem-cell transplant. I had an extensive discussion today about the experience of transplant with the patient. In my opinion, it would be best to try a third TKI prior to pursuing transplant. It would not be unreasonable to pursue transplant, as this is the only curative therapy for CML for Mr. Rodriguez, given his history. After discussion, he would like to move forward with nilotinib, and we will arrange for this. Reviewed the side effects with his prior TKIs, but indicated that we can have different experiences with different TKIs in this class. Answered all of his many questions today. BILLING Return visit level 5. Total time 60 minutes, counseling and [id number] time 50 minutes. [facility]
--- NOTE | 2019-01-11 21:18 | ONCOLOGY CHEMO TEACHING ---
EVENT DATE: January 11, 2019 DIAGNOSIS Chronic phase CML. The patient is seen today for chemotherapy teaching. A total of 45 minutes was spent with him, 100% of which was [id number] counseling. HISTORY OF PRESENT ILLNESS Patient is a 38-year-old male with chronic phase CML, BCR-ABL PCR recently increased on Gleevec, and Dr. Moses is switching him to bosutinib. He generally feels well, although does have some of the expected side effects from the Gleevec. He has also met with Dr. Busch regarding transplant. He had a bone marrow biopsy done on 01/10/19, and he will see Dr. Busch in three months. ONCOLOGY HISTORY Patient was diagnosed with chronic phase CML in December 2016 with two transcripts (p210 and p190). Original white count was 193,000 with a 25 cm spleen. He was treated with Sprycel, but even with multiple dose reductions, he developed severe thrombocytopenia. He did have a complete hematologic response as well as a marked improvement in his BCR-ABL PCR; however, it remained between 1% to 10% due to multiple breaks in therapy. He was then switched to Gleevec from June 2018 until December 2018. There were breaks in treatment because of insurance delays. Resistance testing was negative. Recent BCR-ABL PCR increased up to 50%, and the decision was made to switch to bosutinib. PAST MEDICAL HISTORY CML, December 2016. PAST SURGICAL HISTORY Noncontributory. FAMILY HISTORY Negative for malignancies. SOCIAL HISTORY Patient is . They have three boys, ages 6, 10, and 18 at the time of this dictation. 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 He is a nonsmoker. MEDICATIONS 1. Bosutinib 400 mg daily. 2. Zofran p.r.n. 3. Ativan p.r.n. nausea/anxiety. 4. Claritin. 5. Nasacort. ALLERGIES OPIOIDS - MORPHINE ANALOGS. DISCUSSION 1. A total of 45 minutes was spent in counseling today, 100% of which was face to face. At today's chemotherapy teaching session, we discussed his diagnosis as well as the planned therapy regimen and toxicities associated with bosutinib. Handouts of this drug were provided and reviewed in detail. 2. Side effects and toxicities of chemotherapy agents included, but were not limited to: A. Bone marrow suppression. We reviewed that thrombocytopenia can occur in 35% to 45% of patients. Platelet count yesterday was 121. Anemia can occur in 19% to 38% of patients, but his hemoglobin was 15.1. Leukopenia can occur in 10% to 20% of patients. White count yesterday was within normal limits. B. GI side effects. Discussed the possibility of nausea, vomiting, diarrhea, and constipation. He will receive IV antiemetics and will be prescribed antiemetics for home use. If he were to have diarrhea, recommended Imodium. If he were to have constipation, recommended Senna-S or MiraLAX routinely. Further interventions will be made based on side effects. C. side effects. Discussed the importance of adequate hydration (minimum 8 cups of fluid per day) and emptying the bladder on a regular basis. IV hydration can be scheduled as needed. D. Skin toxicity. Discussed that chemotherapy was very drying to the skin and mucous membranes. Recommended routine moisturizing as well as sun protection. E. Fatigue. Discussed that this is one of the most common complaints of patients undergoing chemotherapy. I have encouraged him to remain as active as possible, taking frequent rests as needed. F. Edema. This can occur in 17% to 20% of patients. He will be monitored. G. Liver toxicity. We reviewed that ALT and AST can increase from 10% to 30%. CMP will be monitored regularly. 3. I have instructed the patient to call our office if he is prescribed any new medications. It is recommended that multiple supplements or herbal medications may not be taken as these may interfere with the action of the chemotherapy. 4. Discussed dietary issues associated with chemotherapy including anorexia and changes in taste. Weight will be monitored routinely. 5. Office contact information ([phone]) is given. I have encouraged the patient to call with any issues regarding treatment. 6. Patient will begin bosutinib 400 mg daily on 01/15/19. He states understanding of the above. Labs including CBC and CMP will be done weekly. I will see him again in two weeks for toxicity check. He will follow up with Dr. Moses on 02/19/19 and follow up with Dr. Busch in mid March 2019. MTDD
== END 2019-01-18 ==
LOC: ONC 15:00
PROVIDERS: ATTEND Internal Medicine
DX: C92.10 Chronic myeloid leukemia, BCR/ABL-positive, not having achieved remission (principal)
CPT/HCPCS: 36415; 82040; 82247; 82310; 82374; 82435; 82565; 82947; 84075; 84132; 84155; 84295; 84450; 84460; 84520; 85025; 99212